=== PATIENT | male | born 1955 | race Caucasian/White ===

== ENCOUNTER → 2016-05-27 | Outpatient (CLI) | payer OTHER ==
--- NOTE | 2016-05-27 16:34 | KCIC ---
PROCEDURE MR of the left shoulder HISTORY Left shoulder pain without relief. TECHNIQUE Standard multiplanar sequences are obtained through the left shoulder. COMPARISON None FINDINGS Mild motion degradation. Acromioclavicular joint is degenerative with primary osteoarthritis. There are small undersurface osteophytes. Diffuse thickening and heterogeneous signal of the supraspinatus and the infra spinatus tendon compatible with tendinosis. Small full-thickness tear of the supraspinatus tendon measures less than 1 centimeter wide and less than 1 centimeter AP. Diffuse undersurface and bursal surface irregularity or fraying. High-grade partial subscapularis tendon tear. Only mild rotator cuff muscle atrophy. Mild fluid in the subdeltoid bursa. Degenerative tear of the superior labrum. Biceps tendon not visualized. No evidence of bone lesion or acute fracture. No acute soft tissue abnormality. IMPRESSION 1. Generalized rotator cuff tendinosis. Small full-thickness tear of the supraspinatus tendon. High-grade subscapularis tendon tear. 2. Superior labral tear. 3. Nonvisualized biceps tendon, suspect rupture. Electronically signed by: Julian Steele MD (May 27, 2016 16:33:35)
--- NOTE | 2016-05-27 17:07 | KCIC ---
PROCEDURE MR of the right shoulder HISTORY Right shoulder pain and limited range of motion. Injury in April 2016. TECHNIQUE Standard noncontrast images are obtained. COMPARISON FINDINGS Acromioclavicular joint is degenerative with small undersurface osteophytes. There is diffuse thickening and hyperintense signal involving the supraspinatus and infra spinatus tendons compatible with tendinosis. No measurable defect or rupture. No significant muscle atrophy. High-grade tearing of the subscapularis tendon. There is some atrophy of the subscapularis muscle. Mild fluid in the subdeltoid bursa. Trace glenohumeral joint fluid. Tear of the superior labrum. Biceps tendon is not visualized. Small humeral head bone lesion identified at the posterior humeral head measuring 9 millimeters. This is subcortical. Has a slightly lobulated morphology without aggressive features and may represent a benign enchondroma or cartilage rest. Intraosseous cyst is possible. No significant or aggressive bone lesion. No acute fracture. No acute soft tissue abnormality. IMPRESSION 1. High-grade partial tear of the subscapularis tendon. Supraspinatus and infraspinatus tendinosis without measurable tear. 2. Superior labrum tear. 3. Nonvisualized biceps tendon, suspect rupture. Electronically signed by: Julian Steele MD (May 27, 2016 17:06:05)
== END | disposition home or self-care (01) ==
LOC: KCIC MRI 15:22
PROVIDERS: ATTEND General Practice
DX: S46.912A Strain of unspecified muscle, fascia and tendon at shoulder and upper arm level, left arm, initial encounter (principal); S43.432A Superior glenoid labrum lesion of left shoulder, initial encounter; S46.911A Strain of unspecified muscle, fascia and tendon at shoulder and upper arm level, right arm, initial encounter; M62.542 Muscle wasting and atrophy, not elsewhere classified, left hand; M19.012 Primary osteoarthritis, left shoulder; X58.XXXA Exposure to other specified factors, initial encounter; Y93.89 Activity, other specified; Y92.89 Other specified places as the place of occurrence of the external cause; Y99.8 Other external cause status; M25.511 Pain in right shoulder
CPT/HCPCS: 73221